=== PATIENT | female | born 1945 | race Caucasian/White ===

== ENCOUNTER → 2017-11-18 | Outpatient (CLI) | payer OTHER, MEDICAID ==
[~2017-11-18] MED LIST: ACET325T14 PO; ALPR0.5T6 PO; ALPR1TAB6 PO; CRANBERRY PO; DIVA125T3 PO; GUAI100L28 PO; LACT-7 PO; MELA5TAB19 PO; QUET25TA PO; SENN1TAB67 PO; SENN8.6T5 PO; TRAZ50TA18 PO
== END ==
LOC: STAR 10:06
PROVIDERS: ATTEND Surgery
DX: Z01.818 Encounter for other preprocedural examination (principal)
CPT/HCPCS: 93005

== ENCOUNTER → 2018-03-06 | Outpatient (CLI) | payer OTHER, MEDICAID ==
[~2018-03-06] MED LIST changes: +ASPI-515 PO; -DIVA125T3 PO; +DIVA125T31 PO; +METO50TA82 PO; +OXYC-302 PO; +TRAZ-136 PO; -TRAZ50TA18 PO
== END | disposition home or self-care (01) ==
LOC: CFH 09:47
PROVIDERS: ATTEND Internal Medicine Hematology & Oncology
DX: Z13.820 Encounter for screening for osteoporosis (principal); M85.88 Other specified disorders of bone density and structure, other site; C50.411 Malignant neoplasm of upper-outer quadrant of right female breast
CPT/HCPCS: 77081